=== PATIENT | female | born 1940 | race Caucasian/White ===

== ENCOUNTER 2016-09-25 05:12 | Day surgery (SDC) | payer MEDICARE, BC ==
[~2016-09-25 05:12] MED LIST: Dextrose 5%-0.45% NaCl 1,000 ML IV SCH; Sodium Chloride 0.9% 10 ML Syringe FLUSH PRN
[2016-09-25] MEDS ORDERED: Midazolam 1 MG/ML 2 ML SDV ONE (06:13)
[2016-09-25] MEDS ORDERED: fentaNYL 100 MCG/2 ML SDV ONE (06:13)
[2016-09-25] MEDS ORDERED: fentaNYL 100 MCG/2 ML SDV IV ONE ×4 (06:36→15:10)
[2016-09-25] MEDS ORDERED: Midazolam 1 MG/ML 2 ML SDV IV ONE ×8 (06:37→15:10)
[2016-09-25 09:57] VITALS: BP 130/73
--- NOTE | 2016-09-25 12:47 | OR ---
DATE: 09/25/2016 PROCEDURE: Total colonoscopy, NBI, and cold snare polypectomy. INSTRUMENT USED: CF-H180AL Olympus video colonoscope. PREMEDICATIONS: Fentanyl 100 mcg intravenous, Versed 4 mg intravenous. Nasal 2 L O2 cannula. The procedure was done under pulse oximetry, BP recording, and crucible furnace tender. INDICATIONS: The patient with rectal bleeding and lower abdominal pain, right side unexplained, but not responsive to medical measures. Colonoscopic examination is done for detection of any polypoid lesions and removal, endoscopic hemostasis therapy if needed. Initial rectal exam showed external hemorrhoidal tags. Rigid anoscopy was normal. The colonoscope was passed with ease. Few scattered diverticula were noted in the distal left colon without any deformity. DESCRIPTION OF PROCEDURE: The scope was passed with ease up to the ileocecal area, photographs were taken of the normal-appearing cecum, identified by double- bulged ileocecal folds. No bleeding was noted from any of the visualized areas at the commencement of the examination. No stricture. No vascular ectasia. No large isolated ulcerations seen. No evidence of diffuse inflammatory bowel disease in the form of friability, contact bleeding, or ulcerations. In the proximal ascending colon, 5 mm sized benign-appearing polyp was noted, NBI views were obtained, photographs were taken, cold snare polypectomy was done, the tissue was retrieved and sent for histopathology. Probing the proximal sides of folds and flexures using adequate distention and clearing up the stool material, withdrawal of the scope was made, cecum to rectum time over 6 minutes. No bleeding was noted from any of the visualized areas at the completion of examination. IMPRESSION: 1. External hemorrhoids. 2. Diverticulosis. 3. Ascending colon polyp. The patient tolerated the procedure well. [facility] /[id number]
[2016-09-25] MEDS ORDERED: Sodium Chloride 0.9% 10 ML Syringe FLUSH PRN (20:47)
== END 2016-09-25 09:03 | disposition home or self-care (01) ==
LOC: DL.ENDO 05:12
PROVIDERS: ATTEND Internal Medicine Gastroenterology
DX: D12.2 Benign neoplasm of ascending colon (principal); E11.9 Type 2 diabetes mellitus without complications; E78.5 Hyperlipidemia, unspecified; F32.9 Major depressive disorder, single episode, unspecified; F17.200 Nicotine dependence, unspecified, uncomplicated; M19.90 Unspecified osteoarthritis, unspecified site; Z86.010 Personal history of colon polyps
CPT/HCPCS: 45385; 88305; J2250; J3010; J7042

== ENCOUNTER 2017-12-09 07:16 | Day surgery (SDC) | payer MEDICARE, BC ==
[~2017-12-09 07:16] MED LIST changes: -Dextrose 5%-0.45% NaCl 1,000 ML IV SCH; +Midazolam 1 MG/ML 2 ML SDV ONE; -Sodium Chloride 0.9% 10 ML Syringe FLUSH PRN; +fentaNYL 100 MCG/2 ML SDV ONE
[2017-12-09] MEDS ORDERED: Midazolam 1 MG/ML 2 ML SDV IV ONE ×3 (07:17→07:57)
[2017-12-09] MEDS ORDERED: fentaNYL 100 MCG/2 ML SDV IV ONE ×3 (07:17→07:56)
[2017-12-09] MEDS ORDERED: Dextrose 5%-0.45% NaCl 1,000 ML IV SCH (07:40)
[2017-12-09 11:28] VITALS: BP 109/71
--- NOTE | 2017-12-09 13:30 | OR ---
DATE: 12/09/2017 PROCEDURE: Esophagogastroduodenoscopy and multiple pinch biopsies. INSTRUMENT USED: GIF-H180 Olympus video panendoscope. PREMEDICATIONS: No oral topical anesthesia used. Fentanyl 100 mcg intravenous, Versed 1.5 mg IV, nasal O2 cannula. The procedure was done under pulse oximetry, BP recording, and cloth finishing range operator chief. 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 Esophagogastroduodenoscopy is performed for detection of any active erosive lesions, malignancy also under consideration, H. pylori status to be determined, endoscopic hemostasis therapy if needed. The scope was passed with ease. Adequate visualization of the esophagus was made from [id number] areas. No upper esophageal lesions identified. No distal esophageal stricture. No uphill or downhill esophageal varices. No Lovely-Lazcano tear. No evidence of erosive esophagitis by Marquette criteria. No esophageal polyp or tumor mass identified. Z-line was seen at around 40 cm distal to the oral verge, configuration consistent with Grade 1 by Zapp classification. No proximal gastric varices noted. Gastric fundus examination by retroflexion showed no polypoid lesions. No gastric ulcer, malignant mass, or vascular ectasia identified. Some prominent, benign-appearing folds were noted in the pre-pyloric area, multiple pinch biopsies were obtained and sent for PyloriTek test for H. pylori as well as histopathology. Multiple pinch biopsies were also taken from proximal gastric body and sent for PyloriTek test for H. pylori and histopathology. Duodenal bulb showed no ulcer. Visualized second part of the duodenum was unremarkable. No bleeding was noted from any of the visualized areas at the completion of examination. Photographs were taken of the duodenal bulb, gastric antrum, fundus, and distal esophagus. IMPRESSION: Normal study. The patient tolerated the procedure well. [facility] /[id number]
--- NOTE | 2017-12-09 14:40 | LETTER ---
12/09/2017 Carol Carney MD [address] [address] RE: MARYSE VARGASKae COWART : [address] Carney: Ms. Brandi Vargas had esophagogastroduodenoscopy done this morning and she tolerated the procedure well. I herewith send a copy of the endoscopy note and photographs for your review. Thank you. Sincerely, [facility] /[id number]
== END 2017-12-09 10:12 | disposition home or self-care (01) ==
LOC: DL.ENDO 07:16
PROVIDERS: ATTEND Internal Medicine Gastroenterology
DX: K29.50 Unspecified chronic gastritis without bleeding (principal); B96.81 Helicobacter pylori [H. pylori] as the cause of diseases classified elsewhere; K31.7 Polyp of stomach and duodenum; K81.1 Chronic cholecystitis; E11.9 Type 2 diabetes mellitus without complications; E78.5 Hyperlipidemia, unspecified; M19.90 Unspecified osteoarthritis, unspecified site; Z88.8 Allergy status to other drugs, medicaments and biological substances; Z86.010 Personal history of colon polyps
CPT/HCPCS: 87077; J2250; J3010; J7042

== ENCOUNTER 2019-05-16 08:14 | Emergency (ER) | payer MEDICARE, BC ==
--- NOTE | 2019-05-16 08:26 | EDM.PDOC ---
ED HPI GENERAL MEDICAL PROBLEM - General Stated Complaint: HARD TIME BREATHING/CHEST PAIN Time Seen by Provider: 05/16/19 08:24 Source of Information: Reports: Patient, RN Notes Reviewed History Limitations: Reports: No Limitations - History of Present Illness INITIAL COMMENTS - FREE TEXT/NARRATIVE: ED with c/o SOB with cough for past 3 weeks, some worse last 3-4 days. Similar few years ago and seen by Dr Alcaraz and given something for stomach infection. Points epigastric area for "chest pain", Not sleeping well, was on Trazodone and lexapro but stopped a couple weeks ago as made her shakey. has not seen primary to follow up. Appetite decreased, Losing weight. Denies fevers, No urinary c/o No vomiting. - Related Data Allergies Allergy/AdvReac Type Severity Reaction Status Date / Time pravastatin AdvReac Muscle Verified 05/16/19 08:25 Aches Home Meds: Home Meds Aspirin [Adult Low Dose Aspirin EC] 81 mg PO DAILY 06/24/13 [History] atorvaSTATin [Lipitor] 40 mg PO DAILY 06/24/13 [History] Calcium Carbonate/Vitamin D3 [Calcium 600 + Vit D 400 Softgl] 1 tab PO BID 09/24 [History] Cholecalciferol (Vitamin D3) [Vitamin D3] 1,000 mg PO DAILY 09/24/14 [History] Fish Oil/[place]-3 Fatty Acids [Fish Oil 1,000 MG] 1 cap PO BID 09/24/14 [History] metFORMIN [Glucophage] 500 mg PO DAILY 09/24/14 [History] Past Medical History HEENT History: Reports: Impaired Vision, Other (See Below) Other HEENT History: WEARS CORRECTIVE LENSES. UPPER AND LOWER DENTURES. 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 ARTHRITIS IN BOTH HANDS. LEFT ANKLE FRACTURE Neurological History: Reports: None Psychiatric History: Reports: Anxiety, Depression, Other (See Below) Other Psychiatric History: NICOTINE DEPENDENCE Endocrine/Metabolic History: Reports: Diabetes, Type II Hematologic History: Reports: Other (See Below) Other Hematologic History: HYPERLIPIDEMIA Immunologic History: Reports: None Oncologic (Cancer) History: Reports: None Dermatologic History: Reports: None - Infectious Disease History Infectious Disease History: Reports: Chicken Pox, Measles, Shingles - Past Surgical History Head Surgeries/Procedures: Reports: None HEENT Surgical History: Reports: Adenoidectomy, Cataract Surgery, Oral Surgery, Tonsillectomy, Other (See Below) Other HEENT Surgeries/Procedures: UPPER & LOWER DENTURES Cardiovascular Surgical History: Reports: None Respiratory Surgical History: Reports: None GI Surgical History: Reports: Appendectomy, Colonoscopy, EGD Female Surgical History: Reports: Breast Biopsy Other Female Surgeries/Procedures: vaginal deliveries X2 Endocrine Surgical History: Reports: None Neurological Surgical History: Reports: Lumbar Spine Musculoskeletal Surgical History: Reports: Other (See Below) Other Musculoskeletal Surgeries/Procedures:: CARPAL TUNNEL RELEASE - BILATERAL HANDS Oncologic Surgical History: Reports: Biopsy of Breast, Other (See Below) Other Oncologic Surgeries/Procedures: RIGHT BREAST BX, BENIGN Dermatological Surgical History: Reports: None Social & Family History - Family History HEENT: Reports: Cataract, Impaired Vision Cardiac: Reports: CAD, Hypertension, [place] Respiratory: Reports: None GI: Reports: None : Reports: None OBGYN: Reports: None Musculoskeletal: Reports: None Neurological: Reports: None Psychiatric: Reports: None - Caffeine Use Caffeine Use: Reports: Coffee Other Caffeine Use: DAILY INTAKE VARIES 3 CUPS OR MORE ON AVERAGE - Living Situation & Occupation Living situation: Reports: with Family Occupation: Retired ED ROS GENERAL - Review of Systems Review Of Systems: Comprehensive ROS is negative, except as noted in HPI. ED EXAM, GENERAL - Physical Exam Exam: See Below Exam Limited By: No Limitations General Appearance: Alert, No Apparent Distress, Anxious, Thin Eye Exam: Bilateral Eye: EOMI, PERRL Ears: Normal External Exam, Hearing Grossly Normal, Normal TMs Nose: Normal Inspection Throat/Mouth: Normal Inspection, Normal Lips, Normal Voice Head: Atraumatic, Normocephalic Neck: Normal Inspection Respiratory/Chest: No Respiratory Distress, Lungs Clear, Normal Breath Sounds Cardiovascular: Normal Peripheral Pulses, Regular Rate, Rhythm GI/Abdominal: Normal Bowel Sounds, Soft, Tender (mild epigastric). No: Distended, Guarding, Rigid, Rebound, Hepatomegaly, Splenomegaly Extremities: Normal Inspection Neurological: Alert, Oriented, Normal Cognition, Normal Gait Psychiatric: Flat Affect Skin Exam: Warm, Dry, Intact, Normal Color Course - Vital Signs Last Recorded V/S: Last Vital Signs Temp 97.9 F 05/16/19 08:15 Pulse 88 05/16/19 08:15 Resp 16 05/16/19 08:15 BP 141/87 H 05/16/19 08:15 Pulse Ox 98 05/16/19 08:15 - Orders/Labs/Meds Labs: Laboratory Tests 05/16/19 05/16/19 05/16/19 Range/Units 08:26 08:26 08:26 WBC 4.6 L (5.0-10.0) 10^3/uL RBC 4.36 (4.2-5.4) 10^6/uL Hgb 13.9 (12.0-16.0) g/dL Hct 40.1 (37.0-47.0) % MCV 92.0 D (80-100) fL MCH 31.9 (27.0-34.0) pg MCHC 34.7 (33.0-35.0) g/dL Plt Count 246 (150-450) 10^3/uL Neut % (Auto) 35.9 L (42.2-75.2) % Lymph % (Auto) 51.2 H (20.5-50.1) % [place] % (Auto) 9.5 H (2-8) % Eos % (Auto) 3.0 (1.0-3.0) % Baso % (Auto) 0.4 (0.0-1.0) % PT 10.3 (9.0-12.0) SEC INR 1.0 (0.9-1.2) Sodium 138 (135-145) mmol/L Potassium 3.9 (3.6-5.0) mmol/L Chloride 102 (101-111) mmol/L Carbon Dioxide 26.0 (21.0-31.0) mmol/L Anion Gap 13.9 BUN 19 H (7-18) mg/dL Creatinine 0.6 (0.6-1.3) mg/dL Est Cr Clr Drug Dosing 65.69 mL/min Estimated GFR (MDRD) > 60 BUN/Creatinine Ratio 31.66 Glucose 146 H (74-105) mg/dL Calcium 9.5 (8.4-10.2) mg/dl Total Bilirubin 1.2 H (0.2-1.0) mg/dL AST 17 (10-42) IU/L ALT 17 (10-60) IU/L Alkaline Phosphatase 46 (42-121) IU/L Troponin I < 0.02 (0.00-0.02) ng/ml B-Natriuretic Peptide 82 (0-100) pg/ml Total Protein 7.5 (6.7-8.2) g/dl Albumin 4.2 (3.2-5.5) g/dl Globulin 3.3 Albumin/Globulin Ratio 1.27 Departure - Departure Time of Disposition: 09:14 Disposition: Home, Self-Care 01 Condition: Good Clinical Impression: URI (upper respiratory infection) Qualifiers: URI type: unspecified viral URI Qualified Code(s): J06.9 - Acute upper respiratory infection, unspecified Gastroesophageal reflux disease Qualifiers: Esophagitis presence: esophagitis presence not specified Qualified Code(s): K21.9 - Gastro-esophageal reflux disease without esophagitis - Discharge Information *PRESCRIPTION DRUG MONITORING PROGRAM REVIEWED*: No *COPY OF PRESCRIPTION DRUG MONITORING REPORT IN PATIENT KASEY: No Instructions: Upper Respiratory Infection, Adult, [id number] Forms: ED Department Discharge Additional Instructions: light activity increase fluid intake omeprazole 20mg one daily on empty stomach bland diet, limit caffeine, no spic food, small meals more frequent humidifier muccinex per label instructions to loosen secretions Tesselon 100mg one every 8 hours as needed for cough clinic follow up this week Sepsis Event Note - Focused Exam Date Exam was Performed: 05/18/19 Time Exam was Performed: 23:59
[2019-05-16 08:48] VITALS: BP 141/87; PULSE 88
[2019-05-16 08:54] LABS: ANION GAP 13.9; CHLORIDE,CL 102 mmol/L (101-111); SODIUM,NA 138 mmol/L (135-145)
== END 2019-05-16 10:20 | disposition home or self-care (01) ==
LOC: DL.ED 08:14
DX: K21.9 Gastro-esophageal reflux disease without esophagitis (principal); J06.9 Acute upper respiratory infection, unspecified; E78.00 Pure hypercholesterolemia, unspecified; E11.9 Type 2 diabetes mellitus without complications; E78.5 Hyperlipidemia, unspecified; Z79.82 Long term (current) use of aspirin; Z79.84 Long term (current) use of oral hypoglycemic drugs; Z79.899 Other long term (current) drug therapy; Z88.8 Allergy status to other drugs, medicaments and biological substances; R06.02 Shortness of breath
CPT/HCPCS: 36415; 71045; 80053; 83880; 84484; 85025; 85610; 93005; 99283; 99285-25

== ENCOUNTER 2020-08-26 12:26 | Emergency (ER) | payer MEDICARE, BC ==
[2020-08-26 12:41] VITALS: BP 146/71; PULSE 77
--- NOTE | 2020-08-26 12:44 | EDM.PDOC ---
ED HPI GENERAL MEDICAL PROBLEM - General Chief Complaint: Chest Pain Stated Complaint: PT FELL PAIN IN RIBS ON LEFT SIDE Time Seen by Provider: 08/26/20 12:41 Source of Information: Reports: Patient, RN, RN Notes Reviewed History Limitations: Reports: No Limitations - History of Present Illness INITIAL COMMENTS - FREE TEXT/NARRATIVE: [place] left rib/chest wall pain sustained yesterday when she tripped and fell. Denies head injury, neck pain, or LOC. Onset: Sudden Onset Date: 08/25/20 Duration: Constant Location: Reports: Chest Quality: Reports: Ache Severity: Severe Improves with: Reports: Immobilization, Rest Worsens with: Reports: Breathing, Movement Associated Symptoms: Reports: No Other Symptoms Left Chest Pain Score (Numeric/FACES): 5 - Related Data Allergies Allergy/AdvReac Type Severity Reaction Status Date / Time pravastatin AdvReac Muscle Verified 05/16/19 08:25 Aches Home Meds: Home Meds Aspirin [Adult Low Dose Aspirin EC] 81 mg PO DAILY 06/24/13 [History] atorvaSTATin [Lipitor] 40 mg PO DAILY 06/24/13 [History] Calcium Carbonate/Vitamin D3 [Calcium 600Mg-D3 400 Unit Sfgl] 1 tab PO BID 09/24/14 [History] Cholecalciferol (Vitamin D3) [Vitamin D3] 1,000 mg PO DAILY 09/24/14 [History] Fish Oil/[place]-3 Fatty Acids [Fish Oil 1,000 MG] 1 cap PO BID 09/24/14 [History] metFORMIN [Glucophage] 500 mg PO DAILY 09/24/14 [History] Past Medical History HEENT History: Reports: Impaired Vision, Other (See Below) Other HEENT History: WEARS CORRECTIVE LENSES. UPPER AND LOWER DENTURES. 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 ARTHRITIS IN BOTH HANDS. LEFT ANKLE FRACTURE Neurological History: Reports: None Psychiatric History: Reports: Anxiety, Depression, Other (See Below) Other Psychiatric History: NICOTINE DEPENDENCE Endocrine/Metabolic History: Reports: Diabetes, Type II Hematologic History: Reports: Other (See Below) Other Hematologic History: HYPERLIPIDEMIA Immunologic History: Reports: None Oncologic (Cancer) History: Reports: None Dermatologic History: Reports: None - Infectious Disease History Infectious Disease History: Reports: Chicken Pox, Measles, Shingles - Past Surgical History Head Surgeries/Procedures: Reports: None HEENT Surgical History: Reports: Adenoidectomy, Cataract Surgery, Oral Surgery, Tonsillectomy, Other (See Below) Other HEENT Surgeries/Procedures: UPPER & LOWER DENTURES Cardiovascular Surgical History: Reports: None Respiratory Surgical History: Reports: None GI Surgical History: Reports: Appendectomy, Colonoscopy, EGD Female Surgical History: Reports: Breast Biopsy Other Female Surgeries/Procedures: vaginal deliveries X2 Endocrine Surgical History: Reports: None Neurological Surgical History: Reports: Lumbar Spine Musculoskeletal Surgical History: Reports: Other (See Below) Other Musculoskeletal Surgeries/Procedures:: CARPAL TUNNEL RELEASE - BILATERAL HANDS Oncologic Surgical History: Reports: Biopsy of Breast, Other (See Below) Other Oncologic Surgeries/Procedures: RIGHT BREAST BX, BENIGN Dermatological Surgical History: Reports: None Social & Family History - Family History HEENT: Reports: Cataract, Impaired Vision Cardiac: Reports: CAD, Hypertension, [place] Respiratory: Reports: None GI: Reports: None : Reports: None OBGYN: Reports: None Musculoskeletal: Reports: None Neurological: Reports: None Psychiatric: Reports: None - Caffeine Use Caffeine Use: Reports: Coffee Other Caffeine Use: DAILY INTAKE VARIES 3 CUPS OR MORE ON AVERAGE Caffeine Use Comment: states she stopped drinking coffee the past 2 weeks due her stomach issues. - Living Situation & Occupation Living situation: Reports: with Family Occupation: Retired ED ROS GENERAL - Review of Systems Review Of Systems: Comprehensive ROS is negative, except as noted in HPI. ED EXAM, GENERAL - Physical Exam Exam: See Below Exam Limited By: No Limitations General Appearance: Alert, WD/WN, No Apparent Distress, Thin Throat/Mouth: Normal Voice, No Airway Compromise Head: Atraumatic, Normocephalic Neck: Normal Inspection, Non-Tender, Full Range of Motion Respiratory/Chest: No Respiratory Distress, Lungs Clear, No Accessory Muscle Use, Decreased Breath Sounds, Other (Left chest wall tenderness with no visible bruising, swelling, or deformity) Cardiovascular: Regular Rate, Rhythm GI/Abdominal: Normal Bowel Sounds, Soft, Non-Tender Back Exam: Normal Inspection Extremities: Normal Inspection, Non-Tender, No Pedal Edema, Normal Capillary Refill. No: Joint Swelling Neurological: Alert, Oriented, Normal Cognition, Normal Gait, No Motor/Sensory Deficits Psychiatric: Normal Affect, Normal Mood Skin Exam: Warm, Dry, Intact, Normal Color, No Rash Course - Vital Signs Last Recorded V/S: Last Vital Signs Temp 97.1 F 08/26/20 12:37 Pulse 77 08/26/20 12:37 Resp 16 08/26/20 12:37 BP 146/71 H 08/26/20 12:37 Pulse Ox 98 08/26/20 12:37 - Orders/Labs/Meds Orders: Active Orders 24 hr Category Date Time Status RT Incentive Spirometry [RC] ONETIME Care 08/26/20 13:16 Active Meds: Medications Discontinued Medications Generic Name Dose Route Start Last Admin Trade Name Freq PRN Reason Stop Dose Admin Lidocaine HCl 30 gm 08/26/20 13:17 Lidocaine 5% Oint 35.44 Gm Tube TOP 08/26/20 13:18 ONETIME ONE - Radiology Interpretation Free Text/Narrative:: XR Left Ribs: Probable nondisplaced fracture anterolateral left 9th rib, see Rad. report. - Re-Assessments/Exams Free Text/Narrative Re-Assessment/Exam: 08/26/20 13:28 Pt declines pain medication. Departure - Departure Time of Disposition: 13:23 Disposition: Home, Self-Care 01 Condition: Good Clinical Impression: Left rib fracture Qualifiers: Encounter type: initial encounter Rib fracture type: single rib Fracture type: closed Qualified Code(s): S22.32XA - Fracture of one rib, left side, initial encounter for closed fracture - Discharge Information *PRESCRIPTION DRUG MONITORING PROGRAM REVIEWED*: Not Applicable *COPY OF PRESCRIPTION DRUG MONITORING REPORT IN PATIENT KASEY: Not Applicable Instructions: Rib Fracture Forms: ED Department Discharge Additional Instructions: Use incentive spirometer once every hour while awake until rib pain completely resolves. Lidocaine Ointment 5% apply thin layer to area of pain every 4 to 6 hours as needed. Follow up in clinic if not improving as expected. Sepsis Event Note (ED) - Evaluation Sepsis Screening Result: No Definite Risk - Focused Exam Vital Signs: Vital Signs Temp Pulse Resp BP Pulse Ox 08/26/20 12:37 97.1 F 77 16 146/71 H 98 - My Orders Last 24 Hours: My Active Orders 08/26/20 13:16 RT Incentive Spirometry [RC] ONETIME - Assessment/Plan Last 24 Hours: My Active Orders 08/26/20 13:16 RT Incentive Spirometry [RC] ONETIME
--- NOTE | 2020-08-26 13:10 | CR ---
EXAMINATION: Ribs 2V w Chest Lt SEX: Female AGE: 79 years CLINICAL HISTORY: 79-year-old female injured in fall (yesterday onto grass). INTERPRETATION: 1. Oblique view demonstrates subtle irregular lucency across the anterolateral aspect of left ninth rib. This lies immediately beneath the radiopaque BB marker and may represent occult nondisplaced fracture ("cracked" rib). 2. No sign of other left rib fracture, underlying lung contusion, ipsilateral pleural effusion or left-sided pneumothorax. 3. Multilevel disc disease and arthritic changes of the spine. 4. Normal cardiac silhouette. Calcinations the arch of the ectatic aorta. No vascular congestion or alveolar edema. 5. No lung mass or hilar lymphadenopathy. (Prominent costochondral cartilage calcifications) 6. No alveolar infiltrate, atelectasis/collapse, or interstitial "groundglass" lung densities. CONCLUSION: Probable nondisplaced fracture anterolateral left ninth rib. No pneumothorax or pleural effusion. No signs of heart failure, lung mass or lobar pneumonia.
[2020-08-26] MEDS ORDERED: Lidocaine 5% Oint 35.44 GM Tube TOP ONE (13:17)
== END 2020-08-26 13:31 | disposition home or self-care (01) ==
LOC: DL.ED 12:26
DX: S22.32XA Fracture of one rib, left side, initial encounter for closed fracture (principal); E78.00 Pure hypercholesterolemia, unspecified; E11.9 Type 2 diabetes mellitus without complications; Z79.82 Long term (current) use of aspirin; Z79.899 Other long term (current) drug therapy; Z79.84 Long term (current) use of oral hypoglycemic drugs; W01.0XXA Fall on same level from slipping, tripping and stumbling without subsequent striking against object, initial encounter
CPT/HCPCS: 71101-LT; 94010; 99283; A9270-GY

== ENCOUNTER 2021-09-30 08:29 | Emergency (ER) | payer MEDICARE, BC ==
[2021-09-30 08:56] VITALS: BP 122/85; PULSE 78
[2021-09-30] MEDS ORDERED: Nitrofurantoin Monohydrate/Macrocrystalline 100 MG Cap PO ONE (09:07)
[2021-09-30] MEDS ORDERED: Phenazopyridine 95 MG Tab PO ONE (09:07)
== END 2021-09-30 09:26 | disposition home or self-care (01) ==
LOC: DL.ED 08:29
DX: N30.01 Acute cystitis with hematuria (principal); E78.00 Pure hypercholesterolemia, unspecified; E11.9 Type 2 diabetes mellitus without complications; Z88.8 Allergy status to other drugs, medicaments and biological substances; Z79.899 Other long term (current) drug therapy; Z79.82 Long term (current) use of aspirin; Z79.84 Long term (current) use of oral hypoglycemic drugs; Z90.49 Acquired absence of other specified parts of digestive tract; Z87.891 Personal history of nicotine dependence
CPT/HCPCS: 81001; 87086; 99283; A9270

== ENCOUNTER 2022-01-19 06:16 | Day surgery (SDC) | payer MEDICARE, BC ==
[~2022-01-19 06:16] MED LIST changes: +Dextrose 5%-0.45% NaCl 1,000 ML IV SCH; +Sodium Chloride 0.9% 10 ML Syringe FLUSH PRN
[2022-01-19] MEDS ORDERED: Midazolam 1 MG/ML 2 ML SDV IV ONE ×2 (06:17→07:48)
[2022-01-19] MEDS ORDERED: fentaNYL 100 MCG/2 ML SDV IV ONE ×3 (06:17→07:47)
[2022-01-19] MEDS ORDERED: Sodium Chloride 0.9% 10 ML Syringe FLUSH SCH (09:00)
[2022-01-19 12:25] VITALS: BP 157/85; PULSE 69
== END 2022-01-19 09:40 | disposition home or self-care (01) ==
LOC: DL.ENDO 06:16
PROVIDERS: ATTEND Internal Medicine Gastroenterology
DX: K29.40 Chronic atrophic gastritis without bleeding (principal); K31.89 Other diseases of stomach and duodenum; E78.5 Hyperlipidemia, unspecified; E11.9 Type 2 diabetes mellitus without complications; F32.A Depression, unspecified; D64.9 Anemia, unspecified; Z88.8 Allergy status to other drugs, medicaments and biological substances; Z79.899 Other long term (current) drug therapy
CPT/HCPCS: 43239; 87077; 88305; 88342; J2250; J3010; J7042